=== PATIENT | male | born 1995 | race Caucasian/White ===

== ENCOUNTER 2018-12-14 22:42 | Emergency (ER) | payer MEDICAID ==
[~2018-12-14] VITALS: Ht 170.2 cm; Wt 113.4 kg
[2018-12-14 23:17] VITALS: Ht 170.2 cm; Wt 113.4 kg
[2018-12-15 02:20] VITALS: BP 125/77
== END 2018-12-15 02:20 | disposition home or self-care (01) ==
LOC: ED 22:42
DX: K04.7 Periapical abscess without sinus (principal); Z88.0 Allergy status to penicillin